=== PATIENT | female | born 1930 | race Caucasian/White ===

== ENCOUNTER 2016-09-27 12:44 | Observation (INO) | payer MEDICARE, BC ==
[2016-09-27] MEDS ORDERED: Aspirin 81 MG Tab.Chew PO ONE (13:18)
[2016-09-27] MEDS ORDERED: Nitroglycerin 0.4 MG Tab.SL SL ONE (13:18)
--- NOTE | 2016-09-27 13:26 | EDM.PDOC ---
ED HISTORY OF PRESENT ILLNESS - General Chief Complaint: Chest Pain Stated Complaint: SHORTNESS,CHEST PAIN LEFT SIDE Time Seen by Provider: 09/27/16 13:16 Source: Reports: Patient, Family History Limitations: Reports: No limitations - History of Present Illness INITIAL COMMENTS - FREE TEXT/NARRATIVE: pt has had a 1 week history of sob and chest pain. The chest pain comes and goes. She has a pacemaker and has had open heart surgery. . She has been very sob. Timing/Duration: Reports: Day(s):, Getting worse, Other ( STARTED ABOUT 1 WEEK AGO. ) Severity: moderate Location, General: Reports: chest Associated Symptoms: Reports: chest pain, cough, shortness of breath - Related Data Allergies/ADRs: Allergies Allergy/AdvReac Type Severity Reaction Status Date / Time codeine Allergy Vomiting Verified 09/27/16 12:58 Home Meds: Home Meds Aspirin [Halfprin] 81 mg PO DAILY 12/25/15 [History] Carvedilol 0.5 tab PO BID 12/25/15 [History] Dorzolamide [Trusopt 2% Ophth Soln] 1 drop EYEBOTH BID 12/25/15 [History] Furosemide 20 mg PO DAILY 12/25/15 [History] Latanoprost 1 drop EYEBOTH BEDTIME 12/25/15 [History] Simvastatin 20 mg PO BEDTIME 12/25/15 [History] Allopurinol [Zyloprim] 1 tab PO DAILY 09/27/16 [History] Past Medical History HEENT History: Reports: Cataract, Glaucoma, Hard of hearing, Impaired vision Cardiovascular History: Reports: Bypass, CAD, Hypertension, [place] [employer] History: Reports: Musculoskeletal History: Reports: Arthritis, Gout - Past Surgical History HEENT Surgical History: Reports: Cataract surgery Cardiovascular Surgical History: Reports: AICD Musculoskeletal Surgical History: Reports: Hip replacement Social & Family History - Family History Oncologic: Reports: Leukemia, Ovarian - Tobacco Use Smoking Status *Q: Never Smoker - Recreational Drug Use Recreational Drug Use: No ED ROS GENERAL - Review of Systems Review Of Systems: See Below Constitutional: Reports: no symptoms HEENT: Reports: No symptoms Respiratory: Reports: Shortness of Breath, Cough Cardiovascular: Reports: Chest pain, Other ( sHE IS HAVING PAIN OVER THE LOWER PORTION OF HER CHEST. sHE HAS NO ABDOMANAL PAIN. ) Endocrine: Reports: no symptoms GI/Abdominal: Reports: No symptoms : Reports: no symptoms Musculoskeletal: Reports: other ( PT DOES HAVE SOME CHEST WALL PAIN. ) Skin: Reports: no symptoms ED EXAM, GENERAL - Physical Exam Exam: See Below Free Text/Narrative:: pT ARRIVED WITH SOB AND FLASHES OF PAIN IN HER LOWER CHEST. tHIS HAS BEEN GOING ON FOR 1 WEEK. sHE HAS A HISTORY OF A PACEMAKER AND A BY PASS. Exam Limited By: No limitations General Appearance: alert, anxious, moderate distress Ears: normal TMs Nose: normal inspection Throat/Mouth: Normal inspection Head: atraumatic Neck: normal inspection Respiratory/Chest: no respiratory distress, decreased breath sounds, rales, other (O2 SATS IN THE 91 RANGE. ) Cardiovascular: regular rate, rhythm GI/Abdominal: soft, non tender Rectal (Female) Exam: Deferred Back Exam: normal inspection Extremities: pedal edema, other (PT HAS PLUS 2 EDEMA. ) Neurological: alert, oriented Psychiatric: normal affect Course - Vital Signs Last Recorded V/S: Last Vital Signs Temp 36.3 C 09/28/16 07:35 Pulse 70 09/28/16 10:00 Resp 24 H 09/28/16 10:00 BP 151/70 H 09/28/16 10:00 Pulse Ox 90 L 09/28/16 10:00 - Orders/Labs/Meds Labs: Laboratory Tests 09/27/16 09/27/16 09/27/16 Range/Units 13:24 13:24 13:24 WBC 7.0 (4.5-11.0) K/uL RBC 4.37 (3.30-5.50) M/uL Hgb 12.5 (12.0-15.0) g/dL Hct 39.9 (36.0-48.0) % MCV 91 (80-98) fL MCH 29 (27-31) pg MCHC 31 L (32-36) % Plt Count 174 (150-400) K/uL Neut % (Auto) 70 H (36-66) % Lymph % (Auto) 15 L (24-44) % [place] % (Auto) 11 H (2-6) % Eos % (Auto) 3 (2-4) % Baso % (Auto) 1 (0-1) % Sodium 144 (140-148) mmol/L Potassium 4.5 (3.6-5.2) mmol/L Chloride 108 (100-108) mmol/L Carbon Dioxide 29 (21-32) mmol/L Anion Gap 7.4 (5.0-14.0) mmol/L BUN 33 H (7-18) mg/dL Creatinine 0.9 (0.6-1.0) mg/dL Est Cr Clr Drug Dosing 31.63 mL/min Estimated GFR (MDRD) 59 L (>60) Glucose 118 H (74-106) mg/dL Calcium 9.3 (8.5-10.1) mg/dL Total Bilirubin 1.6 H (0.2-1.0) mg/dL AST 44 H D (15-37) U/L ALT 51 D (12-78) U/L Alkaline Phosphatase 67 (46-116) U/L Creatine Kinase 47 (26-192) U/L Troponin I 0.026 (0.000-0.056) ng/mL Xca-O-Kyblitdliyq Pept (5-450) pg/mL Total Protein 6.1 L (6.4-8.2) g/dL Albumin 3.5 (3.4-5.0) g/dL Globulin 2.6 (2.3-3.5) g/dL Albumin/Globulin Ratio 1.3 (1.2-2.2) Urine Color Urine Appearance Urine pH (4.5-8.0) Ur Specific [place] (1.008-1.030) Urine Protein (NEGATIVE) mg/dL Urine Glucose (UA) (NEGATIVE) mg/dL Urine Ketones (NEGATIVE) mg/dL Urine Occult Blood (NEGATIVE) Urine Nitrite (NEGATIVE) Urine Bilirubin (NEGATIVE) Urine Urobilinogen (NORMAL) mg/dL Ur Leukocyte Esterase (NEGATIVE) Urine RBC (0-5) Urine WBC (0-5) Ur Epithelial Cells Amorphous Sediment Urine Bacteria Urine Mucus 09/27/16 09/27/16 Range/Units 13:24 15:43 WBC (4.5-11.0) K/uL RBC (3.30-5.50) M/uL Hgb (12.0-15.0) g/dL Hct (36.0-48.0) % MCV (80-98) fL MCH (27-31) pg MCHC (32-36) % Plt Count (150-400) K/uL Neut % (Auto) (36-66) % Lymph % (Auto) (24-44) % [place] % (Auto) (2-6) % Eos % (Auto) (2-4) % Baso % (Auto) (0-1) % Sodium (140-148) mmol/L Potassium (3.6-5.2) mmol/L Chloride (100-108) mmol/L Carbon Dioxide (21-32) mmol/L Anion Gap (5.0-14.0) mmol/L BUN (7-18) mg/dL Creatinine (0.6-1.0) mg/dL Est Cr Clr Drug Dosing mL/min Estimated GFR (MDRD) (>60) Glucose (74-106) mg/dL Calcium (8.5-10.1) mg/dL Total Bilirubin (0.2-1.0) mg/dL AST (15-37) U/L ALT (12-78) U/L Alkaline Phosphatase (46-116) U/L Creatine Kinase (26-192) U/L Troponin I (0.000-0.056) ng/mL Zic-O-Dshrqdtnolz Pept 4414 H (5-450) pg/mL Total Protein (6.4-8.2) g/dL Albumin (3.4-5.0) g/dL Globulin (2.3-3.5) g/dL Albumin/Globulin Ratio (1.2-2.2) Urine Color Yellow Urine Appearance Clear Urine pH 7.0 (4.5-8.0) Ur Specific [place] 1.010 (1.008-1.030) Urine Protein Negative (NEGATIVE) mg/dL Urine Glucose (UA) Normal (NEGATIVE) mg/dL Urine Ketones Negative (NEGATIVE) mg/dL Urine Occult Blood Negative (NEGATIVE) Urine Nitrite Negative (NEGATIVE) Urine Bilirubin Negative (NEGATIVE) Urine Urobilinogen Normal (NORMAL) mg/dL Ur Leukocyte Esterase Negative (NEGATIVE) Urine RBC 0-5 (0-5) Urine WBC 0-5 (0-5) Ur Epithelial Cells Few Amorphous Sediment Not seen Urine Bacteria Not seen Urine Mucus Few Meds: Medications Discontinued Medications Generic Name Dose Route Start Last Admin Trade Name Freq PRN Reason Stop Dose Admin Acetaminophen 650 mg 09/27/16 17:03 Tylenol PO Q4H PRN Pain (Mild 1-3)/fever Allopurinol 100 mg 09/28/16 09:00 09/28/16 08:37 Zyloprim PO 100 mg DAILY DANYELLE Administration Aspirin 324 mg 09/27/16 13:18 09/27/16 13:22 Aspirin PO 09/27/16 13:19 324 mg ONETIME ONE Administration Aspirin 81 mg 09/28/16 09:00 09/28/16 08:36 Halfprin PO 81 mg DAILY DANYELLE Administration Carvedilol 12.5 mg 09/27/16 21:00 Coreg PO BID DANYELLE Carvedilol 6.25 mg 09/27/16 21:00 09/28/16 08:33 Coreg PO 6.25 mg BID [facility] Administration Docusate Sodium 100 mg 09/27/16 17:03 Colace PO BID PRN Constipation Dorzolamide HCl 0 ml 09/27/16 21:00 09/28/16 08:33 Trusopt 2% Ophth Soln EYEBOTH 2 drop BID [facility] Administration Enoxaparin Sodium 40 mg 09/28/16 09:00 09/28/16 08:36 Lovenox SUBCUT 40 mg DAILY [facility] Administration Furosemide 60 mg 09/27/16 14:37 09/27/16 14:46 Lasix IVPUSH 09/27/16 14:38 60 mg ONETIME ONE Administration Furosemide 20 mg 09/28/16 09:00 09/28/16 08:36 Lasix PO 20 mg DAILY [facility] Administration Latanoprost 0 ml 09/27/16 21:00 09/27/16 20:51 Xalatan 0.005% Ophth Soln EYEBOTH 1 drop BEDTIME DANYELLE Administration Magnesium Hydroxide 30 ml 09/27/16 17:03 Milk Of Magnesia PO Q12H PRN Constipation Nitroglycerin 0.4 mg 09/27/16 13:18 Nitrostat SL 09/27/16 13:19 ONETIME ONE Nitroglycerin 0.4 mg 09/27/16 17:03 Nitrostat SL Q5M PRN Chest Pain Ondansetron HCl 4 mg 09/27/16 17:03 Zofran IV Q4H PRN Nausea/Vomiting Oxycodone HCl 5 mg 09/27/16 17:03 09/27/16 23:11 Oxycodone PO 5 mg Q4H PRN Administration Pain (moderate 4-6) Polyethylene Glycol 17 gm 09/27/16 17:03 Miralax PO DAILY PRN Constipation Simvastatin 20 mg 09/27/16 21:00 09/27/16 20:51 Zocor PO 20 mg BEDTIME DANYELLE Administration Sodium Chloride 10 ml 09/27/16 17:03 Saline Flush FLUSH ASDIRECTED PRN Keep Vein Open - Re-Assessments/Exams Free Text/Narrative Re-Assessment/Exam: 09/27/16 14:51 CARDIAC ENZYMES ARE NORMAL. hER bNP IS MARKEDLY ELEVATED. PT WAS GIVEN LASIX 60MG IM. 09/27/16 14:55 Departure - Departure Time of Disposition: 14:52 Disposition: Admitted As Inpatient 65 Condition: fair Clinical Impression: Angina at rest, Fluid overload
--- NOTE | 2016-09-27 14:14 | CR ---
Chest 1V Frontal INDICATION: sob FINDINGS: Sternotomy. Left-sided AICD in place. Cardiomegaly. Fibrosis or linear atelectasis right m idlung. No focal consolidation. Slight blunting of the right costophrenic angle.
[2016-09-27] MEDS ORDERED: Furosemide 40 MG/4 ML VIAL IVPUSH ONE (14:37)
--- NOTE | 2016-09-27 16:45 | PCM.HP ---
H&P History of Present Illness - General Date of Service: 09/27/16 Admit Problem/Dx: Admission Diagnosis/Problem Admission Diagnosis/Problem Chest pain Source of Information: Patient, Provider, RN notes reviewed History Limitations: Reports: No limitations - History of Present Illness Initial Comments - Free Text/Narative: Ms. Villanueva is an 86-year-old woman was admitted through the emergency department observation status for further evaluation and management of chest pain. She has a known history of coronary artery disease and is status post previous coronary artery bypass surgery done many years ago. Over the past week has experienced pain in her left chest. The pain has not occurred during the day when she is up and active but has been present at night when she is lying on her back or on her left side. She can reproduce the pain by pushing on her chest wall. If she rolls to her right side the pain resolves. Pain is described as an intense ache when it's present and is associated with some shortness of breath. Initial EKG shows a paced ventricular rhythm and initial troponin level is within normal range. Chest x-ray showed evidence of fibrosis but no infiltrates or pulmonary edema. - Related Data Allergies/Adverse Reactions: Allergies Allergy/AdvReac Type Severity Reaction Status Date / Time codeine Allergy Vomiting Verified 09/27/16 12:58 Home Medications: Home Meds Aspirin [Halfprin] 81 mg PO DAILY 12/25/15 [History] Carvedilol [Carvedilol] 0.5 tab PO BID 12/25/15 [History] Dorzolamide [Trusopt 2% Ophth Soln] 1 drop EYEBOTH BID 12/25/15 [History] Furosemide [Furosemide] 20 mg PO DAILY 12/25/15 [History] Latanoprost 1 drop EYEBOTH BEDTIME 12/25/15 [History] Simvastatin [Simvastatin] 20 mg PO BEDTIME 12/25/15 [History] Allopurinol [Zyloprim] 1 tab PO DAILY 09/27/16 [History] Past Medical History HEENT History: Reports: Cataract, Glaucoma, Hard of hearing, Impaired vision Cardiovascular History: Reports: Bypass, CAD, Hypertension, [place] [employer] History: Reports: Musculoskeletal History: Reports: Arthritis, Gout - Past Surgical History HEENT Surgical History: Reports: Cataract surgery Cardiovascular Surgical History: Reports: AICD Musculoskeletal Surgical History: Reports: Hip replacement Social & Family History - Family History Oncologic: Reports: Leukemia, Ovarian - Tobacco Use Smoking Status *Q: Never Smoker - Recreational Drug Use Recreational Drug Use: No H&P Review of Systems - Review of Systems: Review Of Systems: See Below General: Reports: no symptoms HEENT: Reports: no symptoms Pulmonary: Reports: No Symptoms Cardiovascular: Reports: chest pain. Denies: palpitations, dyspnea on exertion , orthopnea, PND, edema, lightheadedness, syncope, claudication Gastrointestinal: Reports: No symptoms Genitourinary: Reports: no symptoms Musculoskeletal: Reports: no symptoms Skin: Reports: no symptoms Psychiatric: Reports: no symptoms Neurological: Reports: No Symptoms Hematologic/Lymphatic: Reports: no symptoms Immunologic: Reports: no symptoms Exam - Exam Exam: See Below - Vital Signs Vital Signs: Last Vital Signs Temp 97.3 F 09/27/16 12:56 Pulse 69 09/27/16 15:53 Resp 32 H 09/27/16 14:11 BP 159/86 H 09/27/16 15:53 Pulse Ox 94 L 09/27/16 14:11 Weight: 121 lb - Exam Quality Assessment: DVT prophylaxis General: alert, oriented, cooperative HEENT: Conjunctiva clear, Hearing intact, Mucosa moist & pink, Nares patent, Normal nasal septum, Posterior pharynx clear, Pupils equal, Pupils reactive Neck: supple, trachea midline, +2 carotid pulse wo bruit Lungs: Clear to auscultation, Normal respiratory effort Cardiovascular: regular rate, regular rhythm, normal S1, normal S2. No: irregular rhythm, bradycardia, tachycardia, systolic murmur, diastolic murmur Abdomen: normal bowel sounds, soft Back Exam: normal inspection, full range of motion, NT Extremities: 3, normal inspection, 10 Skin: warm, dry, intact Neurological: cranial nerves intact, strength equal bilateral, normal speech, normal tone, sensation intact. No: focal deficit Neuro Extensive - Mental Status: alert, oriented x3, normal mood/affect, normal cognition, memory intact - Patient Data Lab Results last 24 hrs: Laboratory Results - last 24 hr 09/27/16 09/27/16 09/27/16 Range/Units 13:24 13:24 13:24 WBC 7.0 (4.5-11.0) K/uL RBC 4.37 (3.30-5.50) M/uL Hgb 12.5 (12.0-15.0) g/dL Hct 39.9 (36.0-48.0) % MCV 91 (80-98) fL MCH 29 (27-31) pg MCHC 31 L (32-36) % Plt Count 174 (150-400) K/uL Neut % (Auto) 70 H (36-66) % Lymph % (Auto) 15 L (24-44) % [place] % (Auto) 11 H (2-6) % Eos % (Auto) 3 (2-4) % Baso % (Auto) 1 (0-1) % Sodium 144 (140-148) mmol/L Potassium 4.5 (3.6-5.2) mmol/L Chloride 108 (100-108) mmol/L Carbon Dioxide 29 (21-32) mmol/L Anion Gap 7.4 (5.0-14.0) mmol/L BUN 33 H (7-18) mg/dL Creatinine 0.9 (0.6-1.0) mg/dL Est Cr Clr Drug Dosing 31.63 mL/min Estimated GFR (MDRD) 59 L (>60) Glucose 118 H (74-106) mg/dL Calcium 9.3 (8.5-10.1) mg/dL Total Bilirubin 1.6 H (0.2-1.0) mg/dL AST 44 H D (15-37) U/L ALT 51 D (12-78) U/L Alkaline Phosphatase 67 (46-116) U/L Creatine Kinase 47 (26-192) U/L Troponin I 0.026 (0.000-0.056) ng/mL Gwe-P-Ffakodcrmfa Pept (5-450) pg/mL Total Protein 6.1 L (6.4-8.2) g/dL Albumin 3.5 (3.4-5.0) g/dL Globulin 2.6 (2.3-3.5) g/dL Albumin/Globulin Ratio 1.3 (1.2-2.2) Urine Color Urine Appearance Urine pH (4.5-8.0) Ur Specific [place] (1.008-1.030) Urine Protein (NEGATIVE) mg/dL Urine Glucose (UA) (NEGATIVE) mg/dL Urine Ketones (NEGATIVE) mg/dL Urine Occult Blood (NEGATIVE) Urine Nitrite (NEGATIVE) Urine Bilirubin (NEGATIVE) Urine Urobilinogen (NORMAL) mg/dL Ur Leukocyte Esterase (NEGATIVE) Urine RBC (0-5) Urine WBC (0-5) Ur Epithelial Cells Amorphous Sediment Urine Bacteria Urine Mucus 09/27/16 09/27/16 Range/Units 13:24 15:43 WBC (4.5-11.0) K/uL RBC (3.30-5.50) M/uL Hgb (12.0-15.0) g/dL Hct (36.0-48.0) % MCV (80-98) fL MCH (27-31) pg MCHC (32-36) % Plt Count (150-400) K/uL Neut % (Auto) (36-66) % Lymph % (Auto) (24-44) % [place] % (Auto) (2-6) % Eos % (Auto) (2-4) % Baso % (Auto) (0-1) % Sodium (140-148) mmol/L Potassium (3.6-5.2) mmol/L Chloride (100-108) mmol/L Carbon Dioxide (21-32) mmol/L Anion Gap (5.0-14.0) mmol/L BUN (7-18) mg/dL Creatinine (0.6-1.0) mg/dL Est Cr Clr Drug Dosing mL/min Estimated GFR (MDRD) (>60) Glucose (74-106) mg/dL Calcium (8.5-10.1) mg/dL Total Bilirubin (0.2-1.0) mg/dL AST (15-37) U/L ALT (12-78) U/L Alkaline Phosphatase (46-116) U/L Creatine Kinase (26-192) U/L Troponin I (0.000-0.056) ng/mL Gvn-V-Loapzspdpqv Pept 4414 H (5-450) pg/mL Total Protein (6.4-8.2) g/dL Albumin (3.4-5.0) g/dL Globulin (2.3-3.5) g/dL Albumin/Globulin Ratio (1.2-2.2) Urine Color Yellow Urine Appearance Clear Urine pH 7.0 (4.5-8.0) Ur Specific [place] 1.010 (1.008-1.030) Urine Protein Negative (NEGATIVE) mg/dL Urine Glucose (UA) Normal (NEGATIVE) mg/dL Urine Ketones Negative (NEGATIVE) mg/dL Urine Occult Blood Negative (NEGATIVE) Urine Nitrite Negative (NEGATIVE) Urine Bilirubin Negative (NEGATIVE) Urine Urobilinogen Normal (NORMAL) mg/dL Ur Leukocyte Esterase Negative (NEGATIVE) Urine RBC 0-5 (0-5) Urine WBC 0-5 (0-5) Ur Epithelial Cells Few Amorphous Sediment Not seen Urine Bacteria Not seen Urine Mucus Few Result Diagrams: 09/27/16 13:24 09/27/16 13:24 *Q Meaningful Use (ADM) - VTE *Q VTE Criteria *Q: - VTE Risk Assess *Q Each Risk Factor Represents 1 Point: None Total Score 1 Point Risk Factors: 0 Each Risk Factor Represents 2 Points: None Total Score 2 Point Risk Factors: 0 Each Risk Factor Represents 3 Points: Age 75 Years or Greater Total Score 3 Point Risk Factors: 3 Each Risk Factor Represents 5 Points: None Total Score 5 Point Risk Factors: 0 Venous Thromboembolism Risk Factor Score *Q: 3 - Stroke *Q Stroke Criteria *Q: - AMI *Q AMI Criteria *Q: Problem List Initiated/Reviewed/Updated: Yes Orders Last 24hrs: Active Orders 24 hr Category Date Time Status Patient Status Manage Transfer [TRANSFER] Routine ADT 09/27/16 16:10 Active Cardiac Monitoring [RC] .As Directed Care 09/27/16 16:10 Active EKG Documentation Completion [RC] ASDIRECTED Care 09/27/16 13:14 Active Resuscitation Status Routine Resus Stat 09/27/16 16:11 Ordered EKG 12 Lead [EK] Routine Ther 09/27/16 13:14 Ordered Assessment/Plan Comment:: ASSESSMENT AND PLAN CHEST PAIN-occurring in this 86-year-old woman with a known history of coronary artery disease. Pain is somewhat atypical in that it seems to be positional and can be reproduced by pressure on the chest wall. -Serial troponin levels -Will hold on Cardiolite study unless she has further significant pain more typical of angina or positive troponin levels MAINTENANCE ISSUES -DVT prophylaxis; Lovenox 40 mg subcutaneous daily -GI prophylaxis; not indicated -Camara catheter; not indicated -Nutrition; regular diet -Nicotinic dependence; not required CODE STATUS-DNR/DNI ADMISSION STATUS-this patient will be admitted to observation status, expect no more than a one night hospital stay for evaluation and management of problems as outlined above. DISPOSITION-anticipate discharge to home tomorrow PRIMARY CARE PROVIDER-Dr. Juarez
[2016-09-27] MEDS ORDERED: Magnesium Hydroxide 400 MG/5 ML Susp 30 ML Cup PO PRN (17:03)
[2016-09-27] MEDS ORDERED: oxyCODONE 5 MG Tab PO PRN (17:03)
[2016-09-27] MEDS ORDERED: Ondansetron 4 MG/2 ML SDV IV PRN (17:03)
[2016-09-27] MEDS ORDERED: Acetaminophen 325 MG Tab PO PRN (17:03)
[2016-09-27] MEDS ORDERED: Docusate Sodium 100 MG Cap PO PRN (17:03)
[2016-09-27] MEDS ORDERED: Polyethylene Glycol 3350 Powder 17 GM Packet PO PRN (17:03)
[2016-09-27] MEDS ORDERED: Nitroglycerin 0.4 MG Tab.SL SL PRN (17:03)
[2016-09-27] MEDS ORDERED: Sodium Chloride 0.9% 10 ML Syringe FLUSH PRN (17:03)
[2016-09-27] MEDS: CARVEDILOL 12.5 MG PO SCH (20:51)
[2016-09-27] MEDS: DORZOLAMIDE 2% EYEBOTH SCH (20:51)
[2016-09-27] MEDS ORDERED: Carvedilol 12.5 MG Tab PO SCH (21:00)
[2016-09-27] MEDS ORDERED: SIMVASTATIN 20 MG PO SCH (21:00)
[2016-09-27] MEDS ORDERED: LATANOPROST 0.005% EYEBOTH SCH (21:00)
[2016-09-28] MEDS: CARVEDILOL 12.5 MG PO SCH (08:33)
[2016-09-28] MEDS: DORZOLAMIDE 2% EYEBOTH SCH (08:33)
[2016-09-28] MEDS ORDERED: Furosemide 20 MG Tab*POM PO SCH (09:00)
[2016-09-28] MEDS ORDERED: Aspirin 81 MG Tab.EC PO SCH (09:00)
[2016-09-28] MEDS ORDERED: Allopurinol 100 MG Tab*POM PO SCH (09:00)
[2016-09-28] MEDS ORDERED: Enoxaparin 40 MG/0.4 ML Syringe SUBCUT SCH (09:00)
[2016-09-28 10:50] VITALS: BP 151/70
--- NOTE | 2016-09-28 11:26 | PCM.DCSUM1 ---
Discharge Summary - Hospital Course Brief History: Ms. Villanueva is an 86-year-old woman who was admitted through the emergency department observation status for further evaluation and management of chest pain. - Discharge Data Discharge Date: 09/28/16 Discharge Disposition: Home, Self-Care 01 Condition: Good - Discharge Diagnosis/Problem(s) (1) Chest pain, non-cardiac SNOMED Code(s): 425188900 ICD Code: R07.89 - OTHER CHEST PAIN Status: Acute Current Visit: Yes - Patient Summary/Data Hospital Course: This patient is an 86-year-old woman who was admitted to observation status through the emergency department for further evaluation of chest pain. She has a known history of coronary artery disease and is status post previous coronary artery bypass surgery. For the past few days prior to admission she had been experiencing pain in her left chest described as an ache. Pain would only occur at night when she was lying on her back or left side. It was associated with some shortness of breath, but no diaphoresis or nausea. Pain would resolve immediately she rolled to her right side. She had no pain during the day with activity. She was able 3 produce the pain by pushing on her left chest wall. Initial EKG showed no acute ST segment changes in her troponin level was normal. She was admitted to observation status, serial troponin levels remained normal. She did have one recurrent episode of pain at about midnight but was again related to position in bed and resolved after she rolled to her right side. It was not felt that further evaluation was warranted given the atypical nature of her symptoms. She will be discharged home, activity will be as tolerated and she will resume her usual diet. Followup appointment will be scheduled with her primary care provider within one week. - Patient Instructions Diet: Usual Diet as Tolerated Activity: As Tolerated Other/Special Instructions: Schedule followup appointment with Dr. Juarez within one week. - Discharge Plan Home Medications: Home Meds Aspirin [Halfprin] 81 mg PO DAILY 12/25/15 [History] Carvedilol 0.5 tab PO BID 12/25/15 [History] Dorzolamide [Trusopt 2% Ophth Soln] 1 drop EYEBOTH BID 12/25/15 [History] Furosemide 20 mg PO DAILY 12/25/15 [History] Latanoprost 1 drop EYEBOTH BEDTIME 12/25/15 [History] Simvastatin 20 mg PO BEDTIME 12/25/15 [History] Allopurinol [Zyloprim] 1 tab PO DAILY 09/27/16 [History] Referrals: Kurt Juarez MD [Primary Care Provider] - - Patient Data Vitals - Most Recent: Last Vital Signs Temp 97.4 F 09/28/16 07:35 Pulse 70 09/28/16 10:00 Resp 24 H 09/28/16 10:00 BP 151/70 H 09/28/16 10:00 Pulse Ox 90 L 09/28/16 10:00 Weight - Most Recent: 118 lb 2.684 oz I&O - Last 24 hours: Intake & Output 09/27/16 09/28/16 09/28/16 22:59 06:59 14:59 Output Total 1625 200 50 Balance -1625 -200 -50 Lab Results - Last 24 hrs: Laboratory Results - last 24 hr 09/27/16 09/28/16 Range/Units 19:13 04:45 Troponin I 0.029 0.033 (0.000-0.056) ng/mL Med Orders - Current: Current Medications Acetaminophen (Tylenol) 650 mg PO Q4H PRN PRN Reason: Pain (Mild 1-3)/fever Allopurinol (Zyloprim) 100 mg PO DAILY [facility] Last Admin: 09/28/16 08:37 Dose: 100 mg Aspirin (Halfprin) 81 mg PO DAILY [facility] Last Admin: 09/28/16 08:36 Dose: 81 mg Carvedilol (Coreg) 6.25 mg PO BID [facility] Last Admin: 09/28/16 08:33 Dose: 6.25 mg Docusate Sodium (Colace) 100 mg PO BID PRN PRN Reason: Constipation Dorzolamide HCl (Trusopt 2% Ophth Soln) 0 ml EYEBOTH BID [facility] Last Admin: 09/28/16 08:33 Dose: 2 drop Enoxaparin Sodium (Lovenox) 40 mg SUBCUT DAILY [facility] Last Admin: 09/28/16 08:36 Dose: 40 mg Furosemide (Lasix) 20 mg PO DAILY [facility] Last Admin: 09/28/16 08:36 Dose: 20 mg Latanoprost (Xalatan 0.005% Ophth Soln) 0 ml EYEBOTH BEDTIME [facility] Last Admin: 09/27/16 20:51 Dose: 1 drop Magnesium Hydroxide (Milk Of Magnesia) 30 ml PO Q12H PRN PRN Reason: Constipation Nitroglycerin (Nitrostat) 0.4 mg SL Q5M PRN PRN Reason: Chest Pain Ondansetron HCl (Zofran) 4 mg IV Q4H PRN PRN Reason: Nausea/Vomiting Oxycodone HCl (Oxycodone) 5 mg PO Q4H PRN PRN Reason: Pain (moderate 4-6) Last Admin: 09/27/16 23:11 Dose: 5 mg Polyethylene Glycol (Miralax) 17 gm PO DAILY PRN PRN Reason: Constipation Simvastatin (Zocor) 20 mg PO BEDTIME [facility] Last Admin: 09/27/16 20:51 Dose: 20 mg Sodium Chloride (Saline Flush) 10 ml FLUSH ASDIRECTED PRN PRN Reason: Keep Vein Open Discontinued Medications Aspirin (Aspirin) 324 mg PO ONETIME ONE Stop: 09/27/16 13:19 Last Admin: 09/27/16 13:22 Dose: 324 mg Carvedilol (Coreg) 12.5 mg PO BID [facility] Furosemide (Lasix) 60 mg IVPUSH ONETIME ONE Stop: 09/27/16 14:38 Last Admin: 09/27/16 14:46 Dose: 60 mg Nitroglycerin (Nitrostat) 0.4 mg SL ONETIME ONE Stop: 09/27/16 13:19 *Q Meaningful Use (DIS) - VTE *Q VTE Criteria *Q: - Stroke *Q Stroke Criteria *Q: - AMI *Q AMI Criteria *Q:
== END 2016-09-28 12:45 | disposition home or self-care (01) ==
LOC: JP.ED 12:44 → JP.ICU 16:10
PROVIDERS: ADMIT Hospitalist; ATTEND Hospitalist
DX: R07.89 Other chest pain (principal); I25.810 Atherosclerosis of coronary artery bypass graft(s) without angina pectoris; I10 Essential (primary) hypertension; Z95.810 Presence of automatic (implantable) cardiac defibrillator; R06.02 Shortness of breath; R05 Cough; I25.2 Old myocardial infarction; Z79.82 Long term (current) use of aspirin; Z79.899 Other long term (current) drug therapy; M19.90 Unspecified osteoarthritis, unspecified site; M10.9 Gout, unspecified
CPT/HCPCS: 36415; 71010; 80053; 81001; 82550; 83880; 84484; 85025; 93005; 96372; 96374; 99285; A9270; J1650; J1940; 93010; 99234; G0378

== ENCOUNTER 2017-01-12 07:21 | Emergency (ER) | payer MEDICARE, BC ==
--- NOTE | 2017-01-12 09:02 | CR ---
Cardiomegaly. Power pack. Left lung is clear. Hazy density within the right lung base can indicate i nfiltrate. Mild increased density compared to prior 12/11/2016. Recommend radiographic follow-up.
[2017-01-12 09:52] VITALS: BP 125/89
--- NOTE | 2017-01-12 10:23 | EDM.PDOC ---
ED HPI GENERAL MEDICAL PROBLEM - General Chief Complaint: Cardiovascular Problem Stated Complaint: SOB/PAIN Time Seen by Provider: 01/12/17 08:30 Source of Information: Reports: Patient History Limitations: Reports: No Limitations - History of Present Illness INITIAL COMMENTS - FREE TEXT/NARRATIVE: On January 07 this patient had a thoracentesis for a right pleural effusion and 530 mL of serous fluid were removed. The patient says that she has felt short of breath ever since that procedure. She thinks the fluid is building up again. - Related Data Allergies Allergy/AdvReac Type Severity Reaction Status Date / Time codeine Allergy Vomiting Verified 01/12/17 10:14 Home Meds: Home Meds Carvedilol 0.5 tab PO BID 12/25/15 [History] Dorzolamide [Trusopt 2% Ophth Soln] 1 drop EYEBOTH BID 12/25/15 [History] Furosemide 20 mg PO DAILY 12/25/15 [History] Latanoprost 1 drop EYEBOTH BID 12/25/15 [History] Simvastatin 20 mg PO BEDTIME 12/25/15 [History] Allopurinol [Zyloprim] 100 mg PO DAILY 09/27/16 [History] Acetaminophen/HYDROcodone [[place] 325-5 MG] 1 tab PO Q4H PRN 01/05/17 [History] Nitroglycerin [Nitrostat] 0.4 mg SL ASDIRECTED PRN 01/05/17 [History] Warfarin [Coumadin] 5 mg PO DAILY 01/05/17 [History] Past Medical History HEENT History: Reports: Cataract, Glaucoma, Hard of Hearing, Impaired Vision Cardiovascular History: Reports: Bypass, CAD, Hypertension, [employer] History: Reports: Musculoskeletal History: Reports: Arthritis, Gout - Infectious Disease History Infectious Disease History: Reports: Mumps - Past Surgical History HEENT Surgical History: Reports: Cataract Surgery Cardiovascular Surgical History: Reports: AICD Musculoskeletal Surgical History: Reports: Hip Replacement Social & Family History - Family History Family Medical History: Noncontributory Oncologic: Reports: Leukemia, Ovarian - Tobacco Use Smoking Status *Q: Never Smoker - Caffeine Use Caffeine Use: Reports: Coffee - Recreational Drug Use Recreational Drug Use: No ED ROS GENERAL - Review of Systems Review Of Systems: ROS reveals no pertinent complaints other than HPI. ED EXAM, GENERAL - Physical Exam Exam: See Below Exam Limited By: No Limitations General Appearance: Alert, WD/WN, No Apparent Distress Eye Exam: Bilateral Eye: Normal Inspection Respiratory/Chest: No Respiratory Distress, Lungs Clear Cardiovascular: Regular Rate, Rhythm GI/Abdominal: Non-Tender Extremities: Normal Inspection Course - Vital Signs Last Recorded V/S: Last Vital Signs Temp 36.1 C 01/12/17 08:53 Pulse 74 01/12/17 09:50 Resp 15 01/12/17 09:50 BP 125/89 01/12/17 09:50 Pulse Ox 91 L 01/12/17 09:50 - Orders/Labs/Meds Labs: Laboratory Tests 01/12/17 01/12/17 01/12/17 Range/Units 08:38 08:38 08:38 WBC 6.3 (4.5-11.0) K/uL RBC 4.40 (3.30-5.50) M/uL Hgb 12.8 (12.0-15.0) g/dL Hct 39.9 (36.0-48.0) % MCV 91 (80-98) fL MCH 29 (27-31) pg MCHC 32 (32-36) % Plt Count 145 L (150-400) K/uL Neut % (Auto) 68 H (36-66) % Lymph % (Auto) 17 L (24-44) % [place] % (Auto) 12 H (2-6) % Eos % (Auto) 2 (2-4) % Baso % (Auto) 1 (0-1) % PT 25.9 H (9.5-12.0) sec INR 2.34 H (0.80-1.20) Sodium 141 (140-148) mmol/L Potassium 4.1 (3.6-5.2) mmol/L Chloride 104 (100-108) mmol/L Carbon Dioxide 30 (21-32) mmol/L Anion Gap 7.4 (5.0-14.0) mmol/L BUN 32 H (7-18) mg/dL Creatinine 0.9 (0.6-1.0) mg/dL Est Cr Clr Drug Dosing 31.63 mL/min Estimated GFR (MDRD) 59 L (>60) Glucose 125 H (74-106) mg/dL Calcium 8.9 (8.5-10.1) mg/dL [id number] Pept (5-450) pg/mL 01/12/17 Range/Units 09:21 WBC (4.5-11.0) K/uL RBC (3.30-5.50) M/uL Hgb (12.0-15.0) g/dL Hct (36.0-48.0) % MCV (80-98) fL MCH (27-31) pg MCHC (32-36) % Plt Count (150-400) K/uL Neut % (Auto) (36-66) % Lymph % (Auto) (24-44) % [place] % (Auto) (2-6) % Eos % (Auto) (2-4) % Baso % (Auto) (0-1) % PT (9.5-12.0) sec INR (0.80-1.20) Sodium (140-148) mmol/L Potassium (3.6-5.2) mmol/L Chloride (100-108) mmol/L Carbon Dioxide (21-32) mmol/L Anion Gap (5.0-14.0) mmol/L BUN (7-18) mg/dL Creatinine (0.6-1.0) mg/dL Est Cr Clr Drug Dosing mL/min Estimated GFR (MDRD) (>60) Glucose (74-106) mg/dL Calcium (8.5-10.1) mg/dL [id number] Pept 5551 H (5-450) pg/mL - Radiology Interpretation Free Text/Narrative:: Chest x-ray showed no evidence of pleural effusion. There seemed to be a slight area in the right base that showed either some atelectasis possibly a little bit of edema. Departure - Departure Time of Disposition: 10:20 Disposition: Home, Self-Care 01 Condition: Fair Clinical Impression: Dyspnea, Pulmonary edema Instructions: Shortness of Breath, [id number], Pulmonary Edema, [id number] Referrals: Kurt Juarez MD [Primary Care Provider] - Forms: ED Department Discharge Additional Instructions: You have just a little bit of fluid building up in your right lung. This is actually in the lung itself and it makes the lungs stiff like a wet sponge and this makes it hard to breathe. There is not a big collection of fluid under the lungs that can be removed by a needle. This situation can be treated just by increasing your diuretic furosemide for a few days. You are already taking 20 mg daily of furosemide so I would like you to increase it to 40 mg a day for the next few days. A prescription is being sent in case you run out early. You don't have to get this filled however. You should not take the higher dose of furosemide longer than about a week without talking to your regular doctor. A higher dose of furosemide could eventually make you dehydrated although it's fine to take it or for a few days. Getting rid of the fluid should make your breathing a lot better.
== END 2017-01-12 10:37 | disposition home or self-care (01) ==
LOC: JP.ED 07:21
DX: R06.00 Dyspnea, unspecified (principal); J81.1 Chronic pulmonary edema; Z98.49 Cataract extraction status, unspecified eye; Z96.1 Presence of intraocular lens; Z95.1 Presence of aortocoronary bypass graft; I25.10 Atherosclerotic heart disease of native coronary artery without angina pectoris; I10 Essential (primary) hypertension; Z95.810 Presence of automatic (implantable) cardiac defibrillator; Z88.5 Allergy status to narcotic agent; Z79.899 Other long term (current) drug therapy; Z79.01 Long term (current) use of anticoagulants
CPT/HCPCS: 36415; 71020; 71020-26; 80048; 83880; 85025; 85610; 99283; 99285